=== PATIENT | female | born 1985 | race Caucasian/White ===

== ENCOUNTER → 2016-11-26 | Outpatient (CLI) | payer OTHER ==
[~2016-11-26] MED LIST: LEVO50TA PO; LEVO75TA5 PO; MULTTAB58 PO; WARF-237 PO; WARF-281 PO; WARF1TAB PO; WARF1TAB6 PO
[2016-11-26 19:43] LABS: THYROID STIMULATING HORMONE 0.965 uIu/ml (0.300-4.500)
== END | disposition home or self-care (01) ==
LOC: C.LAB 18:13
PROVIDERS: ATTEND Internal Medicine Endocrinology, Diabetes & Metabolism
DX: E03.9 Hypothyroidism, unspecified (principal)

== ENCOUNTER → 2017-04-24 | Outpatient (CLI) | payer OTHER ==
[2017-04-24 16:17] LABS: THYROID STIMULATING HORMONE 0.596 uIu/ml (0.300-4.500)
== END | disposition home or self-care (01) ==
LOC: C.LAB1850 14:57
PROVIDERS: ATTEND Internal Medicine Endocrinology, Diabetes & Metabolism
DX: E03.9 Hypothyroidism, unspecified (principal)

== ENCOUNTER → 2017-06-24 | Outpatient (CLI) | payer OTHER | END | disposition home or self-care (01) | LOC: C.LAB1850 15:17 | PROVIDERS: ATTEND Physician Assistant | DX: Z11.3 Encounter for screening for infections with a predominantly sexual mode of transmission (principal) ==

== ENCOUNTER → 2017-06-24 | Outpatient (CLI) | payer OTHER | END | disposition home or self-care (01) | LOC: C.PAPS 17:35 | PROVIDERS: ATTEND Physician Assistant | DX: Z12.4 Encounter for screening for malignant neoplasm of cervix (principal); R87.612 Low grade squamous intraepithelial lesion on cytologic smear of cervix (LGSIL) ==

== ENCOUNTER → 2017-07-01 | Outpatient (CLI) | payer OTHER ==
[2017-07-01 13:22] LABS: PREG INTERNAL NEGATIVE QC NEG CLEAR BACKGROUND; PREG INTERNAL POSITIVE QC POS CONTROL LINE
[2017-07-01 18:12] LABS: PROLACTIN 7.4 ng/mL
== END | disposition home or self-care (01) ==
LOC: C.LABBFT 10:59
PROVIDERS: ATTEND Nurse Practitioner
DX: N64.52 Nipple discharge (principal)

== ENCOUNTER → 2017-07-08 | Outpatient (CLI) | payer OTHER | END | disposition home or self-care (01) | LOC: C.PATHSPEC 18:00 | PROVIDERS: ATTEND Obstetrics & Gynecology | DX: R87.612 Low grade squamous intraepithelial lesion on cytologic smear of cervix (LGSIL) (principal) ==

== ENCOUNTER → 2017-07-09 | Outpatient (CLI) | payer OTHER ==
--- NOTE | 2017-07-09 15:11 | MAMMOGRAPHY REPORT ---
UNILATERAL LEFT DIGITAL DIAGNOSTIC MAMMOGRAM TOMOSYNTHESIS WITH CAD AND TARGETED LEFT ULTRASOUND: 06/2017 CLINICAL HISTORY: 32-year-old woman with a two-week history of a few drops of whitish/clear nipple di scharge elicited from her left breast with squeezing. No palpable mass, skin erythema or skin thicke deven. Family history of breast cancer = maternal grandmother. TECHNIQUE: Left breast CC and MLO 2-D and tomosynthesis images, and spot magnification left CC and ML views were obtained. Tiling was performed given the large size of the breast, which did not fit on the detector. Current study was also evaluated with a Computer Aided Detection (CAD) system. COMPARISON: No prior exams were available for comparison. BREAST COMPOSITION: There are scattered areas of fibroglandular density in the left breast. FINDINGS: There are numerous benign rim calcifications in the left breast. No suspicious mass, archi tectural distortion or cluster of suspicious microcalcifications. Targeted ultrasound was performed in the periareolar and retroareolar left breast to assess for any p ossible mass or intraductal process. No discrete solid or cystic mass, focal duct ectasia or intradu ctal mass is identified. No skin thickening is appreciated. No drainable fluid collection. IMPRESSION: ACR BI-RADS CATEGORY 2: BENIGN, TARGETED ULTRASOUND ACR BI-RADS CATEGORY 2: BENIGN There is no mammographic or targeted sonographic evidence of malignancy, or other suspicious abnormal ity to explain the nonspontaneous few drops of whitish/clear left nipple discharge. Therefore, clini booker follow-up is recommended as sampling of the fluid for cytologic analysis may be useful. If the n ipple discharge persists, surgical consultation for possible duct exploration may be needed. These results and recommendations were discussed with the patient at the time of the exam. Approximately 10% of breast cancers are not detected with mammography. A negative mammographic report should not delay biopsy if a clinically suggestive mass is present. Kimberley Ramos M.D. ay/:07/09/2017 12:14:02 [employer] Cartridge Belt Maker: Qi OLIVAREZ (R)), [facility] letter sent: Normal 1/2 BI-RADS Code: ACR BI-RADS Category 2: Benign Ultrasound BI-RADS: ACR BI-RADS Category 2: Benign
== END | disposition home or self-care (01) ==
LOC: C.MAMM 11:17
PROVIDERS: ATTEND Nurse Practitioner
DX: N64.52 Nipple discharge (principal)

== ENCOUNTER 2017-08-25 00:09 | Emergency (ER) | payer OTHER ==
[~2017-08-25] VITALS: Ht 157.5 cm; Wt 88.1 kg
[2017-08-25 00:12] VITALS: Ht 157.5 cm; Wt 88.1 kg
[2017-08-25] MEDS ORDERED: SODIUM CHLORIDE 0.9% 1000ML 1,000 ML IV STA (00:26)
[2017-08-25] MEDS ORDERED: ONDANSETRON INJ 2 MG/ML 2 ML VIAL IV STA (00:26)
--- NOTE | 2017-08-25 00:33 | EMERGENCY ROOM VISIT NOTE ---
History Report prepared by Devendra: Janet Jauregui Under the Supervision of: Dr. Arianne Stephens D.O. First contact with patient: 00:16 Chief Complaint: VOMITING Stated Complaint: PUKING BLACK,SEVERE DIARRHEA Nursing Triage Summary: Patient reports she has been vomiting black for the past 2 hours. Denies pain. 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 Her fiance states that she has been vomiting up "pitch black stuff" and she had a fever and reports that when he touched her forehead, she was so warm he had to pull his hand away. She also blood clots in her legs and does not take her anticoagulation because it makes her sick. She takes thyroid medication regularly. Associated symptoms include nausea and diarrhea. She denies any abdominal pain. 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 A total of 10 systems reviewed and were otherwise negative. Past Medical & Surgical Medical Problems: (1) DVT of lower extremity (deep venous thrombosis) (2) Factor V deficiency (3) Hypertension Nos (4) Hypothyroidism Nos (5) Obesity, Nos (6) Pulm Embol Nos-Antepart (7) Superfic Phlebitis-Leg Family History FH: diabetes mellitus FH: heart disease Social History Smoking Status: Never Smoker Alcohol Use: none Marital Status: single Housing Status: lives with family Occupation Status: unemployed Current/Historical Medications Scheduled Levothyroxine Sodium (Levothyroxine Sodium), 75 MCG PO Q2D Levothyroxine Sodium (Synthroid), 50 MCG PO Q2D Allergies Coded Allergies: No Known Allergies (Verified , 02/10/16) Physical Exam Vital Signs Date Time Temp Pulse Resp B/P (MAP) Pulse Ox O2 Delivery O2 Flow Rate FiO2 08/25/17 02:26 37.0 75 19 103/67 99 08/25/17 02:19 37.0 75 19 103/67 99 Room Air 08/25/17 01:41 70 18 103/61 97 08/25/17 00:12 37.0 66 18 108/72 99 Room Air Physical Exam HEENT: Head - normocephalic and atraumatic Pupils are equal, round, and reactive to light. Extraocular eye muscles are intact, and sclera are anicteric. Nose - moist nasal mucosa without discharge. Mouth - moist buccal mucosa. Oropharynx is nonerythematous and there is no tonsillar exudate or edema noted. Neck: Supple; no JVD, nuchal rigidity, cervical lymphadenopathy. Ears - Normal TMs. Heart: Regular rate and rhythm. There is a normal S1 and S2 with no murmurs, clicks, or gallops appreciated. Lungs: Clear to auscultation bilaterally with no wheezes, rales, or rhonchi. Abdomen: Soft, completely nontender, nondistended, with good bowel sounds. There are no palpable pulsatile masses or hepatosplenomegaly. There is no guarding, rigidity, or rebound noted. Extremities: No evidence of cyanosis, clubbing, or edema. There are easily palpable peripheral pulses. Skin: warm and dry with good turgor and no rashes. Medical Decision & Procedures Laboratory Results 08/25/17 00:45 Red Blood Count 4.84, Mean Corpuscular Volume 95.0, Mean Corpuscular Hemoglobin 32.6, Mean Corpuscular Hemoglobin Concent 34.3, Mean Platelet Volume 9.0, Neutrophils (%) (Auto) 67.0, Lymphocytes (%) (Auto) 21.2, Monocytes (%) (Auto) 8.0, Eosinophils (%) (Auto) 3.2, Basophils (%) (Auto) 0.3, Neutrophils # (Auto) 5.26, Lymphocytes # (Auto) 1.66, Monocytes # (Auto) 0.63, Eosinophils # (Auto) 0.25, Basophils # (Auto) 0.02 08/25/17 00:45 Test 08/25/17 00:45 08/25/17 00:55 08/25/17 01:00 White Blood Count 7.84 K/uL (4.8-10.8) Red Blood Count 4.84 M/uL (4.2-5.4) Hemoglobin 15.8 g/dL (12.0-16.0) Hematocrit 46.0 % (37-47) Mean Corpuscular Volume 95.0 fL (80-100) Mean Corpuscular Hemoglobin 32.6 pg (25-34) Mean Corpuscular Hemoglobin Concent 34.3 g/dl (32-36) Platelet Count 250 K/uL (130-400) Mean Platelet Volume 9.0 fL (7.4-10.4) Neutrophils (%) (Auto) 67.0 % Lymphocytes (%) (Auto) 21.2 % Monocytes (%) (Auto) 8.0 % Eosinophils (%) (Auto) 3.2 % Basophils (%) (Auto) 0.3 % Neutrophils # (Auto) 5.26 K/uL (1.4-6.5) Lymphocytes # (Auto) 1.66 K/uL (1.2-3.4) Monocytes # (Auto) 0.63 K/uL (0.11-0.59) Eosinophils # (Auto) 0.25 K/uL (0-0.5) Basophils # (Auto) 0.02 K/uL (0-0.2) RDW Standard Deviation 44.2 fL (36.4-46.3) RDW Coefficient of Variation 12.7 % (11.5-14.5) Immature Granulocyte % (Auto) 0.3 % Immature Granulocyte # (Auto) 0.02 K/uL (0.00-0.02) Anion Gap 5.0 mmol/L (3-11) Est Creatinine Clear Calc Drug Dose 108.1 ml/min Estimated GFR () 118.4 Estimated GFR (Non- 102.2 BUN/Creatinine Ratio 16.8 (10-20) Calcium Level 8.7 mg/dl (8.5-10.1) Total Bilirubin 0.7 mg/dl (0.2-1) Direct Bilirubin 0.1 mg/dl (0-0.2) Aspartate Amino Transf (AST/SGOT) 15 U/L (15-37) Alanine Aminotransferase (ALT/SGPT) 16 U/L (12-78) Alkaline Phosphatase 69 U/L (45-117) Total Protein 7.7 gm/dl (6.4-8.2) Albumin 3.8 gm/dl (3.4-5.0) Lipase 141 U/L (73-393) Influenza Type A Antigen Neg for Influ A (NEG) Influenza Type B Antigen Neg for Influ B (NEG) Urine Color YELLOW Urine Appearance CLOUDY (CLEAR) Urine pH 6.5 (4.5-7.5) Urine Specific Burns 1.026 (1.000-1.030) Urine Protein NEG (NEG) Urine Glucose (UA) NEG (NEG) Urine Ketones NEG (NEG) Urine Occult Blood TRACE (NEG) Urine Nitrite NEG (NEG) Urine Bilirubin NEG (NEG) Urine Urobilinogen NEG (NEG) Urine Leukocyte Esterase MODERATE (NEG) Urine WBC (Auto) 1-5 /hpf (0-5) Urine RBC (Auto) 0-4 /hpf (0-4) Urine Hyaline Casts (Auto) 1-5 /lpf (0-5) Urine Epithelial Cells (Auto) >30 /lpf (0-5) Urine Bacteria (Auto) 2+ (NEG) Urine Test NEG (NEG) Laboratory results per my review. Medications Administered Medications (Trade) Dose Ordered Sig/Scarlet Route Start Time Stop Time Status Last Admin Dose Admin Sodium Chloride 1,000 ml @ 999 mls/hr Q1H1M STAT IV 08/25/17 00:26 08/25/17 01:26 DC 08/25/17 00:45 999 MLS/HR Ondansetron HCl (Zofran Inj) 4 mg NOW STAT IV 08/25/17 00:26 08/25/17 00:28 DC 08/25/17 00:45 4 MG Procedure 0026: Zofran IV 4mg, Sodium Chloride IV 1000 ml @ 999 mls/hr ED Course 0020: Past medical records reviewed. The patient was evaluated in room B8. A complete history and physical exam was performed. IV lock was established. Labs were drawn as above. 0026: Zofran IV 4mg, Sodium Chloride IV 1000 ml @ 999 mls/hr 0155: I revaluated the patient at this time and performed a rectal exam. Hemoccult test was negative. She feels much better after the Zofran and fluid. She is drinking without any difficulty. 0157: Upon reevaluation, she feels much better. I discussed findings and results with her. She verbalized agreement of the treatment plan. She was discharged home. Medical Decision The patient is a 32 year old female who presents to the ED with vomiting. Differential diagnosis includes GI bleeding, gastro enteritis, viral illness, and gastritis. Lab results show influenza negative, urine negative, urinalysis has trace blood, 2+ bacteria and moderate leukocyte esterase, normal renal function. Normal glucose. Normal LFTs and lipase. Stable H and H and white blood cell count. This is a 30-year-old female patient was brought to the emergency department by her fiance this evening stating that she had developed some vomiting which turned black. The patient had no episodes of vomiting or diarrhea while here in the emergency department. Heme testing of the stool was negative. The patient does admit to eating stuffed shells for dinner along with birthday cake which had some dark-colored icing on it. This could've been the source of the black vomitus. The patient is comfortable at the time of discharge. She has no nausea or abdominal pain. I spoke with patient about the urine results and she denied any urinary symptoms at this time. Blood Pressure Screening Patient's blood pressure: Normal blood pressure Impression Primary Impression: Vomiting Additional Impression: Diarrhea Scribe Attestation The scribe's documentation has been prepared under my direction and personally reviewed by me in its entirety. I confirm that the note above accurately reflects all work, treatment, procedures, and medical decision making performed by me. Departure Information Dispostion Home / Self-Care Referrals No Doctor, Assigned (PCP) Forms HOME CARE DOCUMENTATION FORM, IMPORTANT VISIT INFORMATION Patient Instructions My [facility] Additional Instructions Rest. Take a bland diet and plenty of clear liquids Return to the ER for any further black vomit or bloody vomit Problem Qualifiers Primary Impression: Vomiting Vomiting type: unspecified Vomiting Intractability: non-intractable Nausea presence: without nausea Qualified Codes: R11.11 - Vomiting without nausea Additional Impression: Diarrhea Diarrhea type: unspecified type Qualified Codes: R19.7 - Diarrhea, unspecified
[2017-08-25 00:54] LABS: BASO % 0.3 %; BASO ABS # 0.02 K/uL (0-0.2); EOS % 3.2 %; EOS ABS # 0.25 K/uL (0-0.5); HEMOGLOBIN 15.8 g/dL (12.0-16.0); IG# 0.02 K/uL (0.00-0.02); LYMPH % 21.2 %; LYMPH ABS # 1.66 K/uL (1.2-3.4); MEAN CORPUSCULAR HEMOGLOBIN 32.6 pg (25-34); MEAN CORPUSCULAR HGB CONC 34.3 g/dl (32-36); MONO ABS # 0.63 K/uL (0.11-0.59); NEUT ABS # 5.26 K/uL (1.4-6.5); PLATELET COUNT 250 K/uL (130-400); RED CELL DISTRIBUTION WIDTH CV 12.7 % (11.5-14.5); RED CELL DISTRIBUTION WIDTH SD 44.2 fL (36.4-46.3); WHITE BLOOD COUNT 7.84 K/uL (4.8-10.8)
[2017-08-25 01:11] LABS: ALBUMIN 3.8 gm/dl (3.4-5.0); CALCIUM 8.7 mg/dl (8.5-10.1); CREATININE 0.77 mg/dl (0.60-1.20); POTASSIUM 3.7 mmol/L (3.5-5.1)
[2017-08-25 01:14] LABS: TOTAL PROTEIN 7.7 gm/dl (6.4-8.2)
[2017-08-25 01:31] LABS: INFLUENZA B ANTIGEN Neg for Influ B (NEG)
[2017-08-25 02:26] VITALS: BP 103/67; PULSE 75; TEMP 37; O2SAT 99
== END 2017-08-25 02:26 | disposition home or self-care (01) ==
LOC: C.EDB 00:10
DX: R11.2 Nausea with vomiting, unspecified (principal); R19.7 Diarrhea, unspecified; R82.99 Other abnormal findings in urine; R31.9 Hematuria, unspecified; R50.9 Fever, unspecified; I82.403 Acute embolism and thrombosis of unspecified deep veins of lower extremity, bilateral; D68.2 Hereditary deficiency of other clotting factors; E03.9 Hypothyroidism, unspecified; I10 Essential (primary) hypertension; Z82.49 Family history of ischemic heart disease and other diseases of the circulatory system; Z83.3 Family history of diabetes mellitus